=== PATIENT | male | born 1970 | race Caucasian/White ===

== ENCOUNTER 2023-11-03 10:46 | Emergency (ER) | payer OTHER ==
[2023-11-03] MEDS ORDERED: Ipratropium/Albuterol 3 ML NEB ONE (11:38)
[2023-11-03] MEDS ORDERED: methylPREDNISolone Sod Succ/PF 125 MG/2 ML VIAL ONE (12:09)
== END 2023-11-03 12:29 | disposition home or self-care (01) ==
LOC: MADERS 10:46
DX: J42 Unspecified chronic bronchitis (principal); I10 Essential (primary) hypertension
CPT/HCPCS: 71045; 93005; 96372; J2930; J7620

== ENCOUNTER 2023-11-12 07:50 | Emergency (ER) | payer OTHER ==
[2023-11-12] MEDS ORDERED: Ibuprofen 800 MG TAB ONE (08:13)
[2023-11-12] MEDS ORDERED: methylPREDNISolone Sod Succ/PF 125 MG/2 ML VIAL ONE (08:26)
[2023-11-12] MEDS ORDERED: Ipratropium/Albuterol 3 ML NEB ONE (08:26)
== END 2023-11-12 09:05 | disposition home or self-care (01) ==
LOC: MADERS 07:50
DX: J10.1 Influenza due to other identified influenza virus with other respiratory manifestations (principal); I10 Essential (primary) hypertension
CPT/HCPCS: 71045; 87804; 96372; J2930; J7620